=== PATIENT | male | born 1990 | race Caucasian/White ===

== ENCOUNTER 2017-01-17 06:23 | Observation (INO) | payer BC ==
[~2017-01-17] VITALS: Ht 175.3 cm; Wt 60.3 kg
[~2017-01-17 06:23] MED LIST: BACITRACIN TOP OINT 15 GM TUBE TOPICAL ONE
[2017-01-17] MEDS ORDERED: AMPICILLIN/SULBAC 3 GM/NS 100 ML IV PRN ×2 (07:00)
[2017-01-17] MEDS ORDERED: LACTATED RINGER'S 1000 ML IV PRN (07:00)
[2017-01-17] MEDS ORDERED: SODIUM CHLORID 0.9% 500 ML IV PRN (07:00)
[2017-01-17] MEDS ORDERED: METOPROLOL TARTRATE 25 MG TAB PO PRN (07:00)
[2017-01-17] MEDS ORDERED: POVIDONE IODINE 5% (ANTISEPSIS KIT) 4 APPLICATIONS EACH NARE PRN (07:00)
[2017-01-17] MEDS ORDERED: INSULIN HUMAN REGULAR 1,000 UNITS/10 ML VIAL SQ PRN (07:00)
[2017-01-17] MEDS ORDERED: CHLORHEXIDINE GLUCONATE 2 % 1 PACK (2 CLOTHS) TOPICAL PRN (07:00)
[2017-01-17 07:23] VITALS: BP 144/100; PULSE 71; RESP 18; TEMP 98.2; O2SAT 99
[2017-01-17] MEDS ORDERED: CLAR10CA3 PO (07:35)
[2017-01-17] MEDS ORDERED: APREPITANT 40 MG CAP ONE (07:50)
[2017-01-17] MEDS ORDERED: SCOPOLAMINE 1.5 MG PATCH ONE (07:51)
[2017-01-17] MEDS ORDERED: DEXAMETHASONE SOD PHOS 4 MG/ML VIAL ONE (08:04)
[2017-01-17] MEDS ORDERED: MIDAZOLAM HCL 2 MG/2 ML VIAL ONE (08:04)
[2017-01-17] MEDS ORDERED: fentaNYL CITRATE 250 MCG/5 ML AMP ONE (08:16)
[2017-01-17] MEDS ORDERED: OXYMETAZOLINE HCL 0.05% 15 ML NASAL SPRAY ONE ×3 (08:18→09:17)
[2017-01-17] MEDS ORDERED: LIDOCAINE 1%/EPINEPHrine 1:100,000 SOLN 30 ML VIAL INFIL ONE (08:40)
[2017-01-17] MEDS ORDERED: OXYMETAZOLINE HCL 0.05% 15 ML NASAL SPRAY NASAL ONE (09:15)
[2017-01-17] MEDS ORDERED: DO NOT ADM ANY ANTICOAGULANT DRUGS PRN (09:46)
[2017-01-17] MEDS ORDERED: MORPHINE SULFATE 4 MG/ML INJ ONE (09:52)
[2017-01-17] MEDS ORDERED: ONDANSETRON HCL 4 MG/2 ML VIAL ONE (09:52)
[2017-01-17] MEDS ORDERED: HYDROmorphone HCL PF 1 MG/ML VIAL ONE (10:09)
[2017-01-17] MEDS ORDERED: LABETALOL HCL 100 MG/20 ML VIAL ONE (10:55)
[2017-01-17] MEDS ORDERED: ONDANSETRON HCL 4 MG/2 ML VIAL IV PUSH ONE (12:00)
[2017-01-17] MEDS ORDERED: PROPOFOL 200 MG/20 ML AMP IV ONE (12:00)
[2017-01-17] MEDS ORDERED: ACETAMINOPHEN 325MG/HYDROcodone 7.5MG/15ML UDC PO PRN (12:30)
[2017-01-17] MEDS ORDERED: LACTATED RINGER'S 1000 ML INJ 1,000 ML IV SCH (12:30)
[2017-01-17 12:40] VITALS: O2SAT 97
[2017-01-17] MEDS: MORPHINE SULFATE 8 MG/ML INJ IV PUSH PRN ×2 (15:33→21:26)
[2017-01-17] MEDS: AMPICILLIN/SULBAC 3 GM/NS 100 ML IV SCH ×2 (15:34)
[2017-01-17] MEDS: ONDANSETRON HCL 4 MG/2 ML VIAL IV PUSH PRN ×2 (15:45→21:24)
[2017-01-17 16:29] VITALS: BP 148/90; PULSE 98; RESP 19; TEMP 96.8; O2SAT 97
[2017-01-17 19:15] VITALS: O2SAT 98
[2017-01-17 20:00] VITALS: BP 137/86; PULSE 78; RESP 20; TEMP 96.1; O2SAT 95
[2017-01-18] VITALS: BP 145/100; PULSE 76; RESP 20; TEMP 97.7; O2SAT 96
[2017-01-18] MEDS: AMPICILLIN/SULBAC 3 GM/NS 100 ML IV SCH ×2 (01:56)
[2017-01-18 04:00] VITALS: BP 138/93; PULSE 75; RESP 20; TEMP 96.8; O2SAT 97
[2017-01-18] MEDS ORDERED: HYDR1SOL3 PO (07:41)
[2017-01-18] MEDS ORDERED: CEFP250S PO (07:41)
[2017-01-18 08:00] VITALS: BP 142/89; PULSE 70; RESP 20; TEMP 99.1; O2SAT 96; O2SAT 97
--- NOTE | 2017-01-19 19:08 | MP ---
cc: BRONWYN FAM MD DATE OF SURGERY January 17, [address] Marbella Fam PREOPERATIVE DIAGNOSIS 1. Adenotonsillar hypertrophy 2. Chronic tonsillitis 3. Nasal airway obstruction 4. Nasal septal deviation. 5. Hypertrophy of inferior turbinates POSTOPERATIVE DIAGNOSIS 1. Adenotonsillar hypertrophy 2. Chronic tonsillitis 3. Nasal airway obstruction 4. Nasal septal deviation. 5. Hypertrophy of inferior turbinates PROCEDURE PERFORMED 1. Open repair nasal septal fracture. 2. Bilateral submucosal resection of inferior turbinates INDICATIONS As documented in the history and physical. DESCRIPTION OF OPERATION The patient was taken to OR #2 and placed in the supine position. Following induction of general anesthesia and intubation, the nose was packed bilaterally with cotton pledgets saturated in 0.05% Oxymetazoline. Nasal septum and inferior turbinates were injected with a total of 12 mL of 1% Xylocaine with epinephrine 1:100,000. He was then prepped and draped for surgery. Nasal packing was removed and a hemitransfixion incision was made in the left nasal vestibule and, through this incision, the mucosa of septum was elevated bilaterally as far as the junction of the bony and cartilaginous septum. Next, accumulative area of 2 x 2.5 cm of the quadrangular cartilage was removed. This was done in a piecemeal fashion. There were numerous areas of evidence of old long healed septal fracture. When this was completed, the mucosa was elevated from the bony septum in the maxillary crest and these were removed using Mello Maxwell forceps and a 6-mm Radha chisel. The incision was then closed with a running suture of 4-0 chromic and the mucosal layers of septum were approximated to each other with a quilting stitch of 4-0 plain gut. Inferior turbinates were addressed next. They were fractured out medially and stab incisions made along their inferior surfaces. Through these incisions, the submucosal soft tissue was reduced using a curette and preserving the conchal bone. The incision was then cauterized using the suction Bovie at 35 lopes and the remnants of the inferior turbinates were then re-lateralized to the lateral nasal wall. Nose was then packed with 5.5 cm rapid rhino packs and inflated with 5 mL of air on each side. Table was then turned 90 degrees and a shoulder roll and a Henrique head drape and a McIvor mouth gag were put in place. The tonsils were removed using the ArthroCare Coblator technique. Numerous sites of venous and arterial bleeding were cauterized during this process bilaterally. After this was completed, the nasopharynx was examined using the mirror. This showed marked hypertrophy of adenoids which was removed using the suction Bovie at 45 lopes. Stomach aspirated of several ccs of bilious gastric contents using a #18 Gregory sump NG tube. When this was completed, the mouth gag was removed and the procedure was terminated. The patient was reversed from anesthesia and taken to recovery in good condition. There were no complications. Blood loss was 60 mL. MD LILIA Gee/ /7:36 AM /6:55 PM
== END 2017-01-18 08:40 | disposition home or self-care (01) ==
LOC: PHSDC 06:23 → PH3A 12:39
PROVIDERS: ADMIT Otolaryngology; ATTEND Otolaryngology
DX: J35.3 Hypertrophy of tonsils with hypertrophy of adenoids (principal); J35.01 Chronic tonsillitis; J03.90 Acute tonsillitis, unspecified; J34.2 Deviated nasal septum; J34.3 Hypertrophy of nasal turbinates
CPT/HCPCS: 00160; 00170; 21336; 30140; 42821; 88304; 94762; G0378; J0295; J1100; J1170; J2250; J2270; J2405; J3010; J7120; J8501

== ENCOUNTER 2017-01-20 15:44 | Emergency (ER) | payer BC ==
[~2017-01-20] VITALS: Ht 175.3 cm; Wt 57.1 kg
[~2017-01-20 15:44] MED LIST changes: -BACITRACIN TOP OINT 15 GM TUBE TOPICAL ONE; +CEFP250S PO; +CLAR10CA3 PO; +HYDR1SOL3 PO
[2017-01-20 15:45] VITALS: BP 147/104; PULSE 85; RESP 16; TEMP 98.4; O2SAT 96
[2017-01-20] MEDS ORDERED: SODIUM CHLOR 0.9% 1000 ML INJ 1,000 ML IV ONE (16:15)
[2017-01-20] MEDS ORDERED: ONDANSETRON HCL 4 MG/2 ML VIAL IV PUSH ONE (16:15)
[2017-01-20] MEDS ORDERED: MORPHINE SULFATE 4 MG/ML INJ IV PUSH ONE (16:15)
[2017-01-20] MEDS ORDERED: MORPHINE SULFATE 8 MG/ML INJ IV PUSH ONE (16:30)
--- NOTE | 2017-01-20 16:31 | PD ---
HPI . Postoperative problem Chief Complaint: ENT Complaint Time Seen by Provider: 16:15 Travel History International Travel<30 days: No Contact w/Intl Traveler<30days: No Traveled to known affect area: No History of Present Illness HPI This patient is status post tonsillectomy, adenoidectomy and rhinoplasty on . He comes in complaining with difficulty breathing through his nose because of dried blood and difficulty with swallowing due to throat pain. Patient reports that he was seen by Dr. Fam yesterday and that Dr. Fam removed some clot from his nose. He reports that Dr. Fam is not in the office today so he presented to us today. He is requesting that try to remove some of the clot from his nose. The patient reports that he is on a prophylactic oral antibiotic and Tylenol with Codeine for pain. He reports that his throat pain as 6/10. It is exacerbated by swallowing. There is no relieving factor. PFSH Past Medical History Cancer: No Cardiovascular Problems: Yes (HX OF PERICARDITIS) Diabetes: No Diminished Hearing: No Endocrine: No Genitourinary: No Hepatitis: No Hiatal Hernia: No Immune Disorder: No Musculoskeletal: No Neurologic: No Psychiatric: No Reproductive: No Respiratory: Yes (SEASONAL ALLERGIES ) Immunizations Current: Yes Thyroid Disease: No (FAMILY HX THYROID CA) Tetanus Vaccination: Unknown Influenza Vaccination: No Past Surgical History Abdominal Surgery: No AICD: No Body Medical Devices: PLATE & SCREWS IN ARM Cardiac Surgery: No Ear Surgery: No Endocrine Surgery: No Eye Surgery: No Genitourinary Surgery: No Gynecologic Surgery: No Joint Replacement: No Oral Surgery: No Pacemaker: No Thoracic Surgery: No Tonsillectomy: Yes (adenectony, rhinoplasty) Social History Alcohol Use: No Tobacco Use: No Substance Use: No Allergies-Medications (Allergen,Severity, Reaction): Coded Allergies: No Known Allergies (Unverified , 01/20/17) Reported Meds & Prescriptions Reported Meds & Active Scripts Active Reported Cefprozil Liq (Cefprozil) 250 Mg/5 Ml Susp 250 Mg PO Q12H Hydrocodone-Acetaminophen Liq 7.5-325 Mg/15 Ml Soln 15 Ml PO Q6H PRN Claritin (Loratadine) 10 Mg Cap 10 Mg PO DAILY Review of Systems Except as stated in HPI: all other systems reviewed are Neg General / Constitutional: No: Fever, Chills HENT: Positive: Sore Throat, Congestion, Nosebleed Physical Exam Narrative GENERAL: Awake and alert and in no acute distress. SKIN: Warm and dry. HEAD: Atraumatic. Normocephalic. EYES: Pupils equal and round. ENT: Dried blood in both nostrils. There is scant blood dripping from the nostrils. His oropharynx has some erythema and edema. No active bleeding from the oropharynx. Airway is intact. NECK: Trachea midline. CARDIOVASCULAR: Regular rate and rhythm. RESPIRATORY: No accessory muscle use. MUSCULOSKELETAL: No obvious deformities. No edema. NEUROLOGICAL: Awake and alert. No obvious cranial nerve deficits. Motor grossly within normal limits. Normal speech. PSYCHIATRIC: Appropriate mood and affect; insight and judgment normal. Data Data Last Documented VS Vital Signs Date Time Temp Pulse Resp B/P Pulse Ox O2 Delivery O2 Flow Rate FiO2 01/20/17 15:45 98.4 85 16 147/104 96 Orders Cbc No Diff, Includes Plts (01/20/17 16:15) Sodium Chlor 0.9% 1000 Ml Inj (Ns 1000 M (01/20/17 16:15) Ondansetron Inj (Zofran Inj) (01/20/17 16:15) Morphine Inj (Morphine Inj) (01/20/17 16:30) Dexamethasone Inj (Decadron Inj) (01/20/17 16:45) Labs Laboratory Tests Test 01/20/17 16:34 White Blood Count 6.5 TH/MM3 Red Blood Count 4.96 MIL/MM3 Hemoglobin 14.7 GM/DL Hematocrit 43.2 % Mean Corpuscular Volume 87.2 FL Mean Corpuscular Hemoglobin 29.7 PG Mean Corpuscular Hemoglobin 34.0 % Concent Red Cell Distribution Width 11.3 % Platelet Count 203 TH/MM3 Mean Platelet Volume 7.6 FL MDM Medical Decision Making Medical Screen Exam Complete: Yes Emergency Medical Condition: Yes Differential Diagnosis Differential diagnosis includes routine healing, wound infection, dehydration, anemia secondary to blood loss. Narrative Course Patient presents for evaluation status post tonsillectomy, adenoidectomy and rhinoplasty on 01/17. His main complaints are dried blood in his nostrils and throat pain. These appear to be normal sequela of this surgery to me. I will give him a liter of fluid for possible dehydration and morphine for pain. I will check a CBC to rule out anemia due to blood loss. I will not attempt to remove any clot from his nose. This would be counterproductive as it could induce profound bleeding. I will give him a dose of Decadron for swelling. CBC Diagram 01/20/17 16:34 The patient will be discharged to home. He states that his pain is well controlled with the Tylenol with codeine. I will add oral Sudafed. Diagnosis Primary Impression: Sore throat Additional Impression: Nasal congestion Med/Other Pt SpecificInfo: Prescription(s) given Scripts Pseudoephedrine Liq (Nasal Decongestant Liq)30 Mg/5 Ml Liq30 Mg PO Q6H PRN ( NASAL CONGESTION) #118 ML Ref 0 Prov:Brook Amos MD 01/20/17 Disposition: 01 DISCHARGE HOME Condition: Stable Brook Amos MD Jan 20, 2017 16:31
[2017-01-20] MEDS ORDERED: DEXAMETHASONE SOD PHOS 20 MG/5 ML VIAL IV ONE (16:45)
[2017-01-20 16:55] LABS: HEMATOCRIT 43.2 % (39.0-51.0); MEAN CELL VOLUME 87.2 FL (80.0-100.0); MEAN CORPUSCULAR HEMOGLOBIN 29.7 PG (27.0-34.0); PLATELET COUNT 203 TH/MM3 (150-450); RED BLOOD COUNT 4.96 MIL/MM3 (4.50-5.90); RED CELL DISTRIBUTION WIDTH 11.3 % (11.6-17.2); REVIEW FLAG FINAL; WHITE BLOOD COUNT 6.5 TH/MM3 (4.0-11.0)
[2017-01-20] MEDS ORDERED: [UNRECOGNIZED DRUG - CODE] PO (17:33)
[2017-01-20 18:02] VITALS: BP 118/78
== END 2017-01-20 18:04 | disposition home or self-care (01) ==
LOC: PHED 15:44
DX: J02.9 Acute pharyngitis, unspecified (principal); R09.81 Nasal congestion; Z98.890 Other specified postprocedural states
CPT/HCPCS: 85027; 96374; 96375; 99284; J1100; J2270; J2405; J7030

== ENCOUNTER 2017-01-24 14:23 | Emergency (ER) | payer BC ==
[~2017-01-24] VITALS: Ht 175.3 cm; Wt 56.0 kg
[~2017-01-24 14:23] MED LIST changes: +[UNRECOGNIZED DRUG - CODE] PO
[2017-01-24 14:28] VITALS: BP 140/98; PULSE 87; RESP 16; TEMP 97.6; O2SAT 98
--- NOTE | 2017-01-24 15:06 | PD ---
HPI Chief Complaint: Respiratory Symptoms Time Seen by Provider: 15:06 Travel History International Travel<30 days: No Contact w/Intl Traveler<30days: No Traveled to known affect area: No History of Present Illness HPI 26 YO M presents to the ED for evaluation of SOB, palpitations and right sided back pain. Onset this AM. Patient went to a [facility] care and was referred here for evaluation of possible PE. She also complains of difficulty swallowing and difficulty breathing through his nose. The patient underwent rhinoplasty, tonsillectomy and adenoidectomy with Dr. Fam last week. He had follow-up yesterday and is on antibiotics and pain management currently. PFSH Past Medical History Cancer: No Cardiovascular Problems: Yes (HX OF PERICARDITIS) Diabetes: No Diminished Hearing: No Endocrine: No Gastrointestinal Disorders: Yes (REFLUX) Genitourinary: No Hepatitis: No Hiatal Hernia: No Immune Disorder: No Musculoskeletal: No Neurologic: No Psychiatric: No Reproductive: No Respiratory: Yes (SEASONAL ALLERGIES ) Immunizations Current: Yes Tetanus Vaccination: Unknown Influenza Vaccination: No ?: Not Past Surgical History Abdominal Surgery: No AICD: No Body Medical Devices: PLATE & SCREWS IN ARM Cardiac Surgery: No Ear Surgery: No Endocrine Surgery: No Eye Surgery: No Genitourinary Surgery: No Gynecologic Surgery: No Joint Replacement: No Oral Surgery: No Pacemaker: No Thoracic Surgery: No Tonsillectomy: Yes (adenectony, rhinoplasty) Other Surgery: Yes (ORTHO ) Social History Alcohol Use: No Tobacco Use: No Substance Use: No Allergies-Medications (Allergen,Severity, Reaction): Coded Allergies: No Known Allergies (Unverified , 01/24/17) Reported Meds & Prescriptions Reported Meds & Active Scripts Active Reported Cefprozil Liq (Cefprozil) 250 Mg/5 Ml Susp 250 Mg PO Q12H Hydrocodone-Acetaminophen Liq 7.5-325 Mg/15 Ml Soln 15 Ml PO Q6H PRN Review of Systems Except as stated in HPI: all other systems reviewed are Neg Physical Exam Narrative GENERAL: Well-nourished, well-developed , anxious, thin white male in no acute distress. SKIN: Warm and dry. HEAD: Normocephalic. Atraumatic. EYES: No scleral icterus. No injection or drainage. PERRLA. EOMI. ENT: Pearly reynoso tympanic membranes bilaterally. Nasal mucosa is crusted, no active bleeding.. Oropharynx without erythema, edema or exudate. Bismuth in the bilateral tonsillar fossa noted. NECK: Supple, trachea midline. No JVD or lymphadenopathy. CARDIOVASCULAR: Regular rate and rhythm without murmurs, gallops, or rubs. RESPIRATORY: Breath sounds clear and equal bilaterally. No accessory muscle use. GASTROINTESTINAL: Abdomen soft, non-tender, nondistended. MUSCULOSKELETAL: No cyanosis, or edema. The patient is ambulatory and moves extremities spontaneously. BACK: Nontender without obvious deformity. No CVA tenderness. Data Data Last Documented VS Vital Signs Date Time Temp Pulse Resp B/P Pulse Ox O2 Delivery O2 Flow Rate FiO2 01/24/17 17:43 78 18 147/80 98 01/24/17 15:43 Room Air 01/24/17 14:28 97.6 Orders Complete Blood Count With Diff (01/24/17 15:24) Basic Metabolic Panel (Bmp) (01/24/17 15:24) Urinalysis - C+S If Indicated (01/24/17 15:24) Iv Access Insert/Monitor (01/24/17 15:24) Electrocardiogram (01/24/17 15:24) Chest, Single Ap (01/24/17 15:24) Ct Pulmonary Angiogram (01/24/17 15:24) Sodium Chloride 0.9% Flush (Ns Flush) (01/24/17 15:30) Iohexol 350 Inj (Omnipaque 350 Inj) (01/24/17 18:05) Labs Laboratory Tests Test 01/24/17 15:30 White Blood Count 6.9 TH/MM3 Red Blood Count 5.13 MIL/MM3 Hemoglobin 15.2 GM/DL Hematocrit 45.1 % Mean Corpuscular Volume 87.9 FL Mean Corpuscular Hemoglobin 29.7 PG Mean Corpuscular Hemoglobin 33.8 % Concent Red Cell Distribution Width 11.3 % Platelet Count 254 TH/MM3 Mean Platelet Volume 7.4 FL Neutrophils (%) (Auto) 58.5 % Lymphocytes (%) (Auto) 28.2 % Monocytes (%) (Auto) 9.4 % Eosinophils (%) (Auto) 2.7 % Basophils (%) (Auto) 1.2 % Neutrophils # (Auto) 4.1 TH/MM3 Lymphocytes # (Auto) 1.9 TH/MM3 Monocytes # (Auto) 0.6 TH/MM3 Eosinophils # (Auto) 0.2 TH/MM3 Basophils # (Auto) 0.1 TH/MM3 CBC Comment DIFF FINAL Differential Comment Urine Collection Type CLEAN CATCH Urine Color YELLOW Urine Turbidity CLEAR Urine pH 6.5 Urine Specific [place] 1.012 Urine Protein NEG mg/dL Urine Glucose (UA) NEG mg/dL Urine Ketones 40 mg/dL Urine Occult Blood NEG Urine Nitrite NEG Urine Bilirubin NEG Urine Leukocyte Esterase TRACE Urine WBC 0-2 /hpf Urine Squamous Epithelial 0-5 /hpf Cells Urine Sperm OCC Microscopic Urinalysis Comment CULT NOT INDICATED Sodium Level 141 MEQ/L Potassium Level 3.4 MEQ/L Chloride Level 102 MEQ/L Carbon Dioxide Level 28.0 MEQ/L Anion Gap 11 MEQ/L Blood Urea Nitrogen 8 MG/DL Creatinine 0.69 MG/DL Estimat Glomerular Filtration 139 ML/MIN Rate Random Glucose 78 MG/DL Calcium Level 8.8 MG/DL MDM Medical Decision Making Medical Screen Exam Complete: Yes Emergency Medical Condition: Yes Interpretation(s) EKG rate 90, sinus rhythm. SD interval 120, QRS 109, QTc 396. Nonspecific ST changes. Reviewed by Dr. Jama. Differential Diagnosis Anxiety versus postop complication versus pneumonia versus PE versus other Narrative Course 26 YO M presents to the ED for evaluation of SOB, palpitations and right sided back pain. Onset this AM. Patient went to a [facility] and was referred here for evaluation of possible PE. She also complains of difficulty swallowing and difficulty breathing through his nose. The patient underwent rhinoplasty, tonsillectomy and adenoidectomy with Dr. Fam last week. He had follow-up yesterday and is on antibiotics and narcotic pain medications currently. Vitals reviewed. Physical exam reveals a thin, anxious white male in no acute distress. There is blood crusted in the bilateral nares with no active bleeding. There is bismuth in the bilateral tonsillar fossa without bleeding, airway patent. Chest is clear to auscultation bilaterally. No appreciable M/R/ G. No concerning abnormalities of the CBC or CMP. CTA negative for PE. I discussed the results of the workup with the patient. He is quite anxious appearing and does admit that this could be the source of his shortness of breath and palpitations. He asked for medications to treat his anxiety. I explained that I was hesitant to provide describes sedating meds while he is taking pain medications but did recommend that he follow up with Dr. Fam. He is instructed to continue his medications as prescribed, follow up with Dr. Fam as planned, return to the ED for any urgent or emergent medical condition. He indicated understanding of the instructions and is agreeable to care plan. He stable and discharged home. Diagnosis Primary Impression: Shortness of breath Referrals: Byron Fam MD Additional Instructions: Rest, hydrate. Continue at home medication as prescribed by Dr. Fam. Follow-up with Dr. Fam this week. Discuss your anxiety concerns with Dr. Fam at the next appointment. Return to the ED for any urgent or emergent medical condition. Disposition: 01 DISCHARGE HOME Condition: Stable Rosalva Gonzalez Jan 24, 2017 15:06
[2017-01-24] MEDS ORDERED: SODIUM CHLORIDE 0.9% FLUSH 10 ML FLUSH IVF PRN (15:30)
[2017-01-24 15:43] VITALS: BP 156/99; PULSE 90; RESP 18; O2SAT 100
[2017-01-24 15:47] LABS: AUTOMATED NEUTROPHIL # 4.1 TH/MM3 (1.8-7.7); BASOPHIL # 0.1 TH/MM3 (0-0.2); BASOPHIL % 1.2 % (0.0-2.0); EOSINOPHIL # 0.2 TH/MM3 (0-0.4); EOSINOPHIL % 2.7 % (0.0-4.0); HEMATOCRIT 45.1 % (39.0-51.0); HEMO FLAGS DIFF FINAL; LYMPH % 28.2 % (9.0-44.0); LYMPHOCYTE # 1.9 TH/MM3 (1.0-4.8); MEAN CELL VOLUME 87.9 FL (80.0-100.0); MEAN CORPUSCULAR HEMOGLOBIN 29.7 PG (27.0-34.0); MEAN CORPUSCULAR HGB CONC 33.8 % (32.0-36.0); MONO % 9.4 % (0.0-8.0); NEUT % 58.5 % (16.0-70.0); PLATELET COUNT 254 TH/MM3 (150-450); RED BLOOD COUNT 5.13 MIL/MM3 (4.50-5.90); RED CELL DISTRIBUTION WIDTH 11.3 % (11.6-17.2); WHITE BLOOD COUNT 6.9 TH/MM3 (4.0-11.0)
[2017-01-24 15:54] LABS: BLOOD, URINE NEG (NEG); GLUCOSE,URINE NEG (NEG); KETONE, URINE 40 mg/dL (NEG); NITRITE,URINE NEG (NEG); PH, URINE 6.5 (5.0-8.5)
[2017-01-24 15:58] LABS: POTASSIUM 3.4 MEQ/L (3.5-5.1)
[2017-01-24 15:59] LABS: COMMENT (UR) CULT NOT INDICATED; CULTURE IF INDICATED CULT NOT INDICATED; METHOD OF COLLECTION CLEAN CATCH; SQUAMOUS EPITHELIAL CELL URINE 0-5 /hpf (0-5); URINE COLOR YELLOW (YELLW/STRAW); WBC, URINE 0-2 /hpf (0-5)
--- NOTE | 2017-01-24 16:04 | RADRPT ---
EXAM DATE/TIME: 01/24/2017 15:50 [facility] COMPARISON: No previous studies available for comparison. INDICATIONS : Patient was short of breath this morning when he woke up and had trouble swallowing. MEDICAL HISTORY : None. SURGICAL HISTORY : None. ENCOUNTER: Initial ACUITY: 1 day PAIN SCORE: 0/10 LOCATION: Bilateral chest FINDINGS: A single view of the chest demonstrates the lungs to be symmetrically aerated without evidence of mas s, infiltrate or effusion. The cardiomediastinal contours are unremarkable. Osseous structures are intact. CONCLUSION: No acute disease. Brennan Watkins MD on January 24, 2017 at 16:01 Board Certified Radiologist. This report was verified electronically.
--- NOTE | 2017-01-24 17:12 | RADRPT ---
EXAM DATE/TIME: 01/24/2017 16:25 [facility] COMPARISON: No previous studies available for comparison. INDICATIONS : Shortness of breath IV CONTRAST: 75 cc Omnipaque 350 (iohexol) IV RADIATION DOSE: 4.39 CTDIvol (mGy) MEDICAL HISTORY : Gastroesophageal reflux disease. Pericarditis SURGICAL HISTORY : Tonsillectomy. Adnoids, Right arm ENCOUNTER: Initial ACUITY: 1 day PAIN SCALE: 8/10 LOCATION: chest TECHNIQUE: Volumetric scanning of the chest was performed using a pulmonary embolism protocol MIP images were re constructed. Using automated exposure control and adjustment of the mA and/or kV according to patien t size, radiation dose was kept as low as reasonably achievable to obtain optimal diagnostic quality images. DICOM format image data is available electronically for review and comparison. FINDINGS: PULMONARY ARTERIES: No filling defects are seen in the pulmonary arteries through the segmental level. LUNGS: There is no consolidation or pneumothorax . No concerning pulmonary nodule is visualized. PLEURAE: There is no pleural thickening or pleural effusion. MEDIASTINUM: There is good visualization of the great vessels of the middle mediastinum. No evidence of mediastin al or hilar adenopathy/mass. MUSCULOSKELETAL: Within normal limits for patient age. MISCELLANEOUS: The visualized upper abdominal organs demonstrate no acute abnormality. CONCLUSION: No pulmonary embolus. Gold Mayfield MD on January 24, 2017 at 17:07 Board Certified Radiologist. This report was verified electronically.
[2017-01-24 17:43] VITALS: BP 147/80
[2017-01-24] MEDS ORDERED: IOHEXOL 350 MG/ML 10 ML VIAL (for RAD DIAG) IV ONE (18:05)
--- NOTE | 2017-01-25 09:55 | EKG ---
Date Performed: 01/24/2017 Time Performed: 15:45:57 PTAGE: 26 years EKG: Sinus rhythm INDETERMINATE AXIS ST ELEVATION CONSISTENT WITH INJURY, PERICARDITIS, OR EARLY REPOLARIZATION ABNORM AL ECG NO PREVIOUS TRACING DOCTOR: Jamar Darby Interpretating Date/Time 01/25/2017 09:54:27
== END 2017-01-24 17:46 | disposition home or self-care (01) ==
LOC: PHEFT 14:23
DX: R06.02 Shortness of breath (principal); R00.2 Palpitations; F41.9 Anxiety disorder, unspecified
CPT/HCPCS: 71010; 71275; 80048; 81001; 85025; 93005; 99285; Q9967

== ENCOUNTER 2017-01-27 16:22 | Emergency (ER) | payer BC ==
[~2017-01-27] VITALS: Ht 175.3 cm; Wt 60.0 kg
[~2017-01-27 16:22] MED LIST changes: -CLAR10CA3 PO; -[UNRECOGNIZED DRUG - CODE] PO
[2017-01-27 16:23] VITALS: BP 157/96; PULSE 102; RESP 20; O2SAT 98
--- NOTE | 2017-01-27 16:34 | PD ---
Physical Exam Time Seen by Provider: 16:31 Narrative 26yo F c/o bleeding from hi throat after tonsillectomy one week ago. Bleeding started today. Reports "a little" swelling in throat. Surgery by Dr. Enriquez. Called office and they are closed. Patient seen in triage. VS reviewed. Awaiting bed placement. Data Data Last Documented VS Vital Signs Date Time Temp Pulse Resp B/P Pulse Ox O2 Delivery O2 Flow Rate FiO2 01/27/17 16:23 102 20 157/96 98 Room Air MDM Supervised Visit with HARVINDER: Lauren Hill Jan 27, 2017 16:34
--- NOTE | 2017-01-27 16:43 | PD ---
HPI . bleeding s/p tonsillectomy ~1 week ago Chief Complaint: ENT Complaint Time Seen by Provider: 16:38 Travel History International Travel<30 days: No Contact w/Intl Traveler<30days: No Traveled to known affect area: No History of Present Illness HPI 26 yr old male with no significant past medical history here with complaints of bleeding from tonsillectomy that was performed on last Monday by Dr. Fam. Patient had a tonsillectomy and says that all of a sudden approximately 30-40 minutes ago he developed some bleeding. This made him very nervous and anxious and he decided to come in to the emergency department for further evaluation. He recently completed antibiotic, and the name is unknown. He is taking hydrocodone liquid for his throat discomfort. At this present time he denies any increased throat pain. He denies any shortness of breath. He is accompanied by his grandmother. PFSH Past Medical History Cancer: No Cardiovascular Problems: Yes (HX OF PERICARDITIS) Diabetes: No Diminished Hearing: No Endocrine: No Gastrointestinal Disorders: Yes (REFLUX) Genitourinary: No Hepatitis: No Hiatal Hernia: No Immune Disorder: No Musculoskeletal: No Neurologic: No Psychiatric: No Reproductive: No Respiratory: Yes (SEASONAL ALLERGIES ) Immunizations Current: Yes Past Surgical History Abdominal Surgery: No AICD: No Body Medical Devices: PLATE & SCREWS IN ARM Cardiac Surgery: No Ear Surgery: No Endocrine Surgery: No Eye Surgery: No Genitourinary Surgery: No Gynecologic Surgery: No Joint Replacement: No Oral Surgery: No Pacemaker: No Thoracic Surgery: No Tonsillectomy: Yes (adenectony, rhinoplasty) Other Surgery: Yes (ORTHO ) Social History Alcohol Use: No Tobacco Use: No Substance Use: No Allergies-Medications (Allergen,Severity, Reaction): Coded Allergies: No Known Allergies (Unverified , 01/27/17) Reported Meds & Prescriptions Reported Meds & Active Scripts Active Reported Cefprozil Liq (Cefprozil) 250 Mg/5 Ml Susp 250 Mg PO Q12H Hydrocodone-Acetaminophen Liq 7.5-325 Mg/15 Ml Soln 15 Ml PO Q6H PRN Review of Systems General / Constitutional: No: Fever Eyes: No: Visual changes HENT: Positive: Other (throat bleeding), No: Headaches Cardiovascular: No: Chest Pain or Discomfort Respiratory: No: Shortness of Breath Gastrointestinal: No: Abdominal Pain Genitourinary: No: Dysuria Musculoskeletal: No: Pain Skin: No Rash Neurologic: No: Weakness Psychiatric: No: Depression Endocrine: No: Polydipsia Hematologic/Lymphatic: No: Easy Bruising Physical Exam Narrative GENERAL: AAO x 3, no acute distress, Well-nourished, well-developed patient. SKIN: Warm and dry. No visible rashes or bruising. HEAD: Normocephalic and atraumatic. EYES: No scleral icterus. No injection or drainage. EOM intact, PERRLA ENT: No nasal drainage noted. Mucous membranes pink. Airway patent. no active bleeding, small amount of blood mixed with saliva, once patient swallowed, no more blood present. normal healing. no evidence infection NECK: Supple, trachea midline. No JVD. No lymphadenopathy CARDIOVASCULAR: Regular rate and rhythm without murmurs, gallops, or rubs. RESPIRATORY: Breath sounds equal bilaterally. No accessory muscle use. No rhonchi or rales. GASTROINTESTINAL: Visual inspection normal. EXTREMITIES: No cyanosis or edema. BACK: No obvious deformity. NEURO: Grossly intact PSYCH: AAO x 3, normal affect. Data Data Last Documented VS Vital Signs Date Time Temp Pulse Resp B/P Pulse Ox O2 Delivery O2 Flow Rate FiO2 01/27/17 16:55 98.7 01/27/17 16:39 103 18 01/27/17 16:23 157/96 98 Room Air [facility] Medical Decision Making Medical Screen Exam Complete: Yes Emergency Medical Condition: Yes Medical Record Reviewed: Yes Differential Diagnosis post op bleeding, less likely esophageal varices, less likely trauma Narrative Course 26-year-old male here with postop bleeding from a tonsillectomy. Surgery was approximately a week ago. Patient seen and examined. He does not have any overt signs of bleeding at this moment. He is hemodynamically stable and in no signs of distress. I've had a prolonged discussion with him and his grandmother regarding postoperative bleeding. I provided him reassurance and recommend if his issues persist and he is worried that he is more than welcome to return to the emergency room. I recommend he keep his follow-up with Dr. Enriquez next week. Patient verbalized understanding of instructions, questions were answered, and thanked me for their care. I advised them if their condition worsens, please return to the nearest emergency room for further care. Diagnosis Primary Impression: Post-tonsillectomy hemorrhage Patient Instructions: General Instructions Additional Instructions: Continue taking her medications as prescribed. Follow up with your in ear, nose and throat specialist as scheduled. Return to the emergency department for any worsening of your condition. Disposition: 01 DISCHARGE HOME Condition: Stable [facility] Jan 27, 2017 16:43
[2017-01-27 16:55] VITALS: TEMP 98.7
[2017-01-27 17:30] VITALS: BP 118/77; TEMP 98
== END 2017-01-27 17:30 | disposition home or self-care (01) ==
LOC: NEPE 16:22
DX: K91.841 Postprocedural hemorrhage of a digestive system organ or structure following other procedure (principal); K21.9 Gastro-esophageal reflux disease without esophagitis; Z79.899 Other long term (current) drug therapy
CPT/HCPCS: 99281